=== PATIENT | female | born 2000 | race African-American/Black ===

== ENCOUNTER 2024-08-11 12:09 | Emergency (ER) | payer OTHER, SELFPAY ==
[2024-08-11 12:11] VITALS: BP 125/70; PULSE 105; RESP 14; TEMP 36.8; O2SAT 99
--- NOTE | 2024-08-11 13:58 | ED_ITS ---
HPI - General Adult General Chief complaint: Allergic Reaction Stated complaint: facial swelling Time Seen by Provider: 08/11/24 12:44 History of Present Illness HPI narrative: 23-year-old female presenting to the emergency department for evaluation for allergic reaction. Patient states that over the last 5 years he has had intermittent issues with hives. Patient had been on a course of steroids a few weeks ago but states that her symptoms restarted again last night. Patient does have follow-up with Dr Borden in [place] for her allergies. Related Data Allergies Allergy/AdvReac Type Severity Reaction Status Date / Time No Known Allergies Allergy Verified 08/11/24 12:16 Review of Systems Review of Systems: All systems reviewed & are unremarkable except as noted in HPI and below Course Vital Signs Vital signs: Vital Signs Temperature 98.2 F 08/11/24 12:11 Pulse Rate 105 H 08/11/24 12:11 Respiratory Rate 14 08/11/24 12:11 Blood Pressure 125/70 08/11/24 12:11 Pulse Oximetry 99 08/11/24 12:11 Oxygen Delivery Room Air 08/11/24 12:11 Temperature 98.2 F 08/11/24 12:11 Pulse Rate 95 08/11/24 14:05 Respiratory Rate 14 08/11/24 12:11 Blood Pressure 133/78 08/11/24 14:05 Pulse Oximetry 99 08/11/24 14:05 Oxygen Delivery Room Air 08/11/24 14:03 Medical Decision Making [facility] Narrative Medical decision making narrative: 23-year-old female presenting to the emergency department for evaluation for recurrent hives. Patient was restarted on steroids.. 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 All questions concerns were addressed and patient was comfortable plan for discharge and close follow-up. Differential Diagnosis Differential Diagnosis: COVID, RSV, influenza, allergies, anaphylaxis, angioedema Vital Signs Vital Signs: Vital Signs Temperature 98.2 F 08/11/24 12:11 Pulse Rate 105 H 08/11/24 12:11 Respiratory Rate 14 08/11/24 12:11 Blood Pressure 125/70 08/11/24 12:11 Pulse Oximetry 99 08/11/24 12:11 Oxygen Delivery Room Air 08/11/24 12:11 Temperature 98.2 F 08/11/24 12:11 Pulse Rate 95 08/11/24 14:05 Respiratory Rate 14 08/11/24 12:11 Blood Pressure 133/78 08/11/24 14:05 Pulse Oximetry 99 08/11/24 14:05 Oxygen Delivery Room Air 08/11/24 14:03 Discharge Plan Discharge Clinical Impression: Allergic reaction Patient Disposition: Home, Self-Care Condition: Stable Instructions: Antibiotic Form, General Allergic Reaction (ED) Additional Instructions: Prednisone as directed for the next 5 days. Benadryl as needed for hives. Continue to have close follow-up with your electrical engineering professor. If you have any worsening symptoms and please call or return to the emergency department. Prescriptions: New prednisone 50 mg tablet 50 mg PO DAILY Qty: 5 0RF Follow-up/Referrals: PHYSICIAN NOT ON STAFF,NONSTAFF [Primary Care Provider] -
[2024-08-11 14:03] VITALS: O2SAT 98
[2024-08-11] MEDS: predniSONE 20 MG TABLET 40 MG PO (14:04)
[2024-08-11 14:05] VITALS: BP 133/78; PULSE 95; O2SAT 99
== END 2024-08-11 14:08 | disposition home or self-care (01) ==
PROVIDERS: Emergency Provider Emergency Medicine
DX: T78.40XA Allergy, unspecified, initial encounter (principal); X58.XXXA Exposure to other specified factors, initial encounter
CPT/HCPCS: 99283; J7512